=== PATIENT | female | born 1990 | race African-American/Black ===

== ENCOUNTER 2020-12-27 09:02 | Emergency (ER) | payer OTHER, SELFPAY ==
[2020-12-27 09:15] VITALS: BP 103/75; PULSE 59; RESP 16; TEMP 36.8; O2SAT 100
--- NOTE | 2020-12-27 10:04 | ED.EYEPROB ---
HPI - Eye Problem General Chief complaint: Eye Problems Stated complaint: right eye painful/redness Time Seen by Provider: 12/27/20 10:04 Source: patient and RN notes reviewed Mode of arrival: ambulatory Limitations: no limitations History of Present Illness HPI Narrative: 30-year-old female presents concern for right eye pain and redness. Reports symptoms started yesterday. She denies injury, trauma, foreign body. She denies wearing contact lenses. She denies purulent drainage, watery drainage. She denies vision changes. Reports she had similar instance last year and was seen by an eye doctor, had her eyes dilated, and given steroid drops. She denies nasal congestion, rhinorrhea, sore throat, fever. Denies headache. Reports light sensitivity. MD chief complaint: eye pain Related Data Allergies Allergy/AdvReac Type Severity Reaction Status Date / Time No Known Allergies Allergy Verified 12/27/20 09:33 Review of Systems Review of Systems: CONSTITUTIONAL: Denies malaise, chills, sweats, or fever. EYES: Denies visual changes, irritation, or discharge. Reports right eye pain and redness. ENT: Denies rhinorrhea, congestion, sinus pain, otalgia or sore throat. SKIN: Denies rash or itching. MUSCULOSKELETAL: Denies myalgia. NEUROLOGIC: Denies headache. All systems reviewed & are unremarkable except as noted in HPI and below PMFSH Social History Social History Smoking status: Never smoker Second hand tobacco smoke exposure: Yes Alcohol intake: current Substance use: never Substance use type: does not use Comments At time of signature, agree with nursing past medical, surgical, social and family history. There is no relevant family history pertinent to the presenting complaint Exam Narrative: GENERAL: Well-appearing, well-nourished, and in no acute distress. HEAD: Normocephalic, atraumatic. EYES: PERRLA, conjunctivae clear, and EOMI. No nystagmus. ENT: Nares clear, turbinates pink, no rhinorrhea or epistaxis. Mucous membranes moist. TM pearly cervantes with sharp light reflex bilaterally; no tragal tenderness. Oropharynx without erythema or lesions. Tonsils not enlarged and without exudate. NECK: Supple. No lymphadenopathy. No jugular venous distension, thyromegaly, or carotid bruits. Carotids were easily palpable bilaterally. CHEST: No respiratory distress. Clear to auscultation. No bony deformities, no asymmetry. Speaks in full sentences. HEART: Regular rate and rhythm. No murmur heard. Normal peripheral pulses. ABDOMEN: Soft, nontender, nondistended, normal active bowel sounds, no palpable masses. EXTREMITIES: Normal range of motion. No edema. Normal strength and sensation. SKIN: Warm, dry, no visible rash. NEURO: Alert and oriented x3. No focal deficits. Cranial nerves II through XII grossly intact PSYCH: Normal mood and affect Course Course Emergency Course: Patient is aware of diagnosis, understands and agrees to treatment plan. Anticipatory guidance given. Patient agrees to follow-up as directed and is aware of reasons to seek care at the emergency department. Portions of this record may have been created with voice recognition software Vital Signs Vital signs: Vital Signs Temperature 98.2 F 12/27/20 09:15 Pulse Rate 59 L 12/27/20 09:15 Respiratory Rate 16 12/27/20 09:15 Blood Pressure 103/75 12/27/20 09:15 Pulse Oximetry 100 12/27/20 09:15 Temperature 98.2 F 12/27/20 09:15 Pulse Rate 59 L 12/27/20 09:15 Respiratory Rate 16 12/27/20 09:15 Blood Pressure 103/75 12/27/20 09:15 Pulse Oximetry 100 12/27/20 09:15 Reviewed. MDM - Eye Problem MDM Narrative Medical decision making narrative: Consideration of the following conditions may be warranted for the presenting problem, they are not final diagnoses: Bacterial conjunctivitis, allergic conjunctivitis, viral conjunctivitis, foreign body, blepharitis, chalazion, hordeolum,
== END 2020-12-27 10:25 | disposition home or self-care (01) ==
PROVIDERS: Emergency Provider Nurse Practitioner
DX: H57.11 Ocular pain, right eye (principal)
CPT/HCPCS: 99213; G0463